=== PATIENT | male | born 1940 | race Caucasian/White ===

== ENCOUNTER 2018-04-26 10:02 | Outpatient (CLI) | payer MEDICARE, OTHER | END 2018-04-26 10:03 | disposition home or self-care (01) | LOC: SC 10:02 | PROVIDERS: ATTEND Internal Medicine Pulmonary Disease | DX: G47.33 Obstructive sleep apnea (adult) (pediatric) (principal) | CPT/HCPCS: 99203; G0463; 99212 ==

== ENCOUNTER 2018-05-19 05:29 | Outpatient (CLI) | payer MEDICARE | END 2018-05-19 05:30 | disposition critical access hospital (66) | LOC: EMS 05:29 | PROVIDERS: ATTEND Surgery | DX: R25.2 Cramp and spasm (principal); R53.1 Weakness | CPT/HCPCS: A0425; A0429 ==

== ENCOUNTER 2018-05-19 05:54 | Emergency (ER) | payer MEDICARE ==
[2018-05-19] MEDS ORDERED: LORazepam 2 MG/ML VIAL ONE (06:09)
[2018-05-19] MEDS ORDERED: LORazepam 2 MG/ML VIAL IVP STA (06:10)
[2018-05-19 06:17] LABS: BASOPHILS # (AUTO) 0.1 10^3/uL (0.0-0.1); BASOPHILS % (AUTO) 1.3 %; EOSINOPHILS # (AUTO) 0.2 10^3/uL (0.0-0.7); HGB - HEMOGLOBIN 14.1 g/dL (14.0-18.0); LYMPHOCYTES # (AUTO) 2.2 10^3/uL (1.5-3.5); LYMPHOCYTES % (AUTO) 24.6 %; MEAN CORPUSCULAR HEMOGLOBIN 30.5 pg (27.0-31.0); MEAN CORPUSCULAR HGB CONC 33.5 g/dL (32.0-36.0); MEAN CORPUSCULAR VOLUME 90.9 fL (80.0-94.0); MEAN PLATELET VOLUME 7.8 fL (7.4-11.4); MONOCYTES # (AUTO) 1.3 10^3/uL (0.0-1.0); MONOCYTES % (AUTO) 14.4 %; NEUTROPHILS # (AUTO) 5.1 10^3/uL (1.5-6.6); NEUTROPHILS % (AUTO) 57.7 %; PLT - PLATELET COUNT 251 10^3/uL (130-450); RED BLOOD COUNT 4.64 10^6/uL (4.70-6.10); RED CELL DISTRIBUTION WIDTH 14.2 % (12.0-15.0); WHITE BLOOD COUNT 8.8 x10^3/uL (4.8-10.8)
[2018-05-19 06:32] LABS: ALBUMIN 3.7 g/dL (3.2-5.5); ALBUMIN/GLOBULIN RATIO 0.9 (1.0-2.2); BILIRUBIN,TOTAL 1.1 mg/dL (0.2-1.0); CREATININE 0.8 mg/dL (0.6-1.2); MAGNESIUM 2.2 mg/dL (1.7-2.8); PHOSPHORUS 3.4 mg/dL (2.5-4.6); TOTAL PROTEIN 7.6 g/dL (6.7-8.2)
--- NOTE | 2018-05-19 06:37 | ED Physician Documentation ---
PD HPI FOCAL NEURO - Stated complaint Stated Complaint: LEFT HAND SPASM - Chief complaint Chief Complaint: Neuro - History obtained from History obtained from: Patient, EMS - History of Present Illness Timing - onset: Today Timing - details: Abrupt onset, Now resolved Severity of deficit: Mild Weakness: Hand, Left Similar symptoms before: Has not had sx before Recently seen: Not recently seen - Additional information Additional information: Patient is an 78 year old male presenting to the emergency department for spasm followed by weakness of his left hand. According to patient he was woken up today by repetitive spasming of his left hand. patient states that it lasted about 5 minutes followed by weakness in that hand. patient reports a stroke in 2002 with minimal deficit. patient reports that about a month ago he had another stroke like experience with left sided weakness and some facial droop but he had family coming in town for his 78th birthday and didn't want to be in the hospital so he did not come in. patient reports that he has been doing exercised in the right hand to try to regain strength. Review of Systems Ten Systems: 10 systems reviewed and negative Constitutional: denies: Fever, Chills Eyes: denies: Decreased vision, Photophobia GI: denies: Nausea, Vomiting Musculoskeletal: denies: Extremity pain Neurologic: reports: Focal weakness, Numbness. denies: Headache, Head injury, LOC Immunocompromised: denies: Immunocompromised PD PAST MEDICAL HISTORY - Past Medical History Past Medical History: No Cardiovascular: Hypertension, High cholesterol Respiratory: None Neuro: CVA Endocrine/Autoimmune: None GI: None : None HEENT: None Psych: None Musculoskeletal: None Derm: None - Past Surgical History Past Surgical History: No General: Colonoscopy, EGD HEENT: Tonsil/Adenoidectomy - Present Medications Home Medications: Ambulatory Orders Medication Instructions Recorded Confirmed Atenolol 50 mg PO 05/19/18 Clopidogrel [Plavix] 75 mg PO ONCE 05/19/18 05/19/18 Finasteride 5 mg PO 05/19/18 Lisinopril 40 mg PO 05/19/18 Pantoprazole [Protonix] 40 mg PO 05/19/18 Pravastatin Sodium 40 mg PO 05/19/18 amLODIPine [Norvasc] 10 mg PO DAILY 05/19/18 05/19/18 - Allergies Allergies/Adverse Reactions: Allergies Allergy/AdvReac Type Severity Reaction Status Date / Time Penicillins AdvReac Rash Verified 05/19/18 06:02 - Social History Does the pt smoke?: No Smoking Status: Never smoker Does the pt drink ETOH?: Yes Does the pt have substance abuse?: No - Immunizations Immunizations are current?: Yes - POLST Patient has POLST: No PD ED PE NORMAL - Vitals Vital signs reviewed: Yes - General General: Alert and oriented X 3 - HEENT HEENT: Atraumatic - Cardiac Cardiac: RRR - Respiratory Respiratory: No respiratory distress - Abdomen Abdomen: Soft - Derm Derm: Normal color PD ED PE EXPANDED - Neuro Neuro: Alert and Oriented X 3. No: Confused, Disoriented, Normal motor (poor fine motor function of left fingers) NIHSS - Time Time: 06:00 - Level of Consciousness Level of consciousness: (0) Alert, Keenly responsive LOC Questions: (0) Answers both Q's correct LOC Commands: (0) Performs both correctly - Gaze Best Gaze: (0) Normal - Visual Visual: (0) No loss - Facial Palsy Facial Palsy: (1) Minor paralysis - Motor Arms (both separate) Motor Arm (right): (0) No drift Motor Arm (left): (0) No drift - Motor Legs (both separate) Motor Leg (right): (0) No drift Motor Leg (left): (0) No drift - Limb Ataxia Limb Ataxia: (0) Absent - Sensory Sensory: (0) Normal - Best Language Best Language: (0) No aphasia - Dysarthria Dysarthria: (0) Normal - Extinction and Inattention (formally neg Extinction and inattention: (0) No abnormality - Total Score/Results Total Score/Result: 1 Results - Vitals Vitals: Vital Signs - 24 hr 05/19/18 05/19/18 05:56 06:34 Temperature 36.3 C L Heart Rate 62 59 L Respiratory 16 19 Rate Blood Pressure 151/91 H 137/90 H O2 Saturation 99 97 Oxygen O2 Source Room air - Labs Labs: Laboratory Tests 05/19/18 05/19/18 05/19/18 06:02 06:02 06:02 WBC 8.8 RBC 4.64 L Hgb 14.1 Hct 42.2 MCV 90.9 MCH 30.5 MCHC 33.5 RDW 14.2 Plt Count 251 MPV 7.8 Neut # (Auto) 5.1 Lymph # (Auto) 2.2 [place] # (Auto) 1.3 H Eos # (Auto) 0.2 Baso # (Auto) 0.1 Absolute Nucleated RBC 0.00 Nucleated RBC % 0.0 PT 12.1 INR 1.1 APTT 28.2 Sodium 138 Potassium 3.6 Chloride 102 Carbon Dioxide 28 Anion Gap 8.0 BUN 13 Creatinine 0.8 Estimated GFR (MDRD) 93 Glucose 117 H Calcium 9.0 Phosphorus 3.4 Magnesium 2.2 Total Bilirubin 1.1 H AST 25 ALT 20 Alkaline Phosphatase 55 Total Protein 7.6 Albumin 3.7 Globulin 3.9 Albumin/Globulin Ratio 0.9 L Lipase 39 PD MEDICAL DECISION MAKING - ED course Complexity details: reviewed old records, reviewed results, re-evaluated patient , considered differential, d/w patient ED course: patient was seen and examined at bedside. labs were drawn. while waiting for lab results patient had another episode. it was more of a focal seizure of the left arm/hand as opposed to spasm. it lasted about 3 minutes. patient was treated with ativan 1mg and imaging was ordered. When patient returned results were reviewed and discussed with radiologist. Patient was found to have two masses with petechial hemorrhage and vasogenic edema. Findings were discussed with the patient and family. Case was discussed with Dr. Kearns, Neurosurgery who recommended loading the patient on keppra, 4mg decadron IV and transfer to the neuro icu. - Sepsis Event Vital Signs: Vital Signs - 24 hr 05/19/18 05/19/18 05:56 06:34 Temperature 36.3 C L Heart Rate 62 59 L Respiratory 16 19 Rate Blood Pressure 151/91 H 137/90 H O2 Saturation 99 97 Oxygen O2 Source Room air Departure - Departure Clinical Impression: Mass of cerebral hemisphere, Vasogenic cerebral edema Condition: Critical
[2018-05-19 06:42] LABS: INR 1.1 (0.8-1.2); PT - PROTHROMBIN TIME 12.1 secs (9.9-12.6)
--- NOTE | 2018-05-19 06:54 | CT Report ---
Reason: focal seizure Procedure Date: 05/19/2018 Accession Number: [id number] / [id number] Procedure: CT - Head W/O CPT Code: FULL RESULT: EXAM: CT HEAD EXAM DATE: 05/19/2018 06:33 AM. CLINICAL HISTORY: Seizure. COMPARISON: Brain CT from 03/25/2007. TECHNIQUE: Multiaxial CT images were obtained from the foramen magnum to the vertex. Reformats: Coronal. IV contrast: None. In accordance with CT protocol optimization, one or more of the following dose reduction techniques were utilized for this exam: automated exposure control, adjustment of mA and/or KV based on patient size, or use of iterative reconstructive technique. FINDINGS: Parenchyma: Moderate cerebral white matter hypodensity is now noted, progressed since the prior CT and likely represents progressed chronic microvascular ischemic changes. There is an area of hypodensity in the subcortical white matter of the right middle frontal gyrus measuring 3.7 x 1.3 cm (image 25, series 3), suspicious for vasogenic edema. There is suggestion of 2 hyperdense intra-axial masses in the left frontal lobe measuring 9 mm in the left middle frontal gyrus (image 25, series 3) and in the left inferior frontal gyrus measuring 9 mm (image 20, series 3). Extraaxial Spaces: Normal for age. No subdural or epidural collections identified. Ventricles: The ventricles and cortical sulci are mildly enlarged, consistent with age-related tissue loss. Sinuses and orbits: There is mild mucosal thickening in the left maxillary sinus. The orbits and mastoid sinuses are unremarkable. Bones: No evidence of fracture or calvarial defect. Other: Mild intracranial atherosclerosis is noted. IMPRESSION: 1. Suggestion of vasogenic edema in the right middle frontal gyrus. 2. Suggestion of intra-axial masses in the left frontal lobe with intratumoral petechial hemorrhage. Further evaluation with brain MRI with and without contrast is recommended. RADIA The above findings were discussed with Dr. Rogers by Dr. Erica Bryan at 06:52 hrs on 05/19/18.
--- NOTE | 2018-05-19 07:16 | ED Physician Documentation ---
History of Present Illness - Stated complaint Stated Complaint: LEFT HAND SPASM - Chief complaint Chief Complaint: Neuro PD PAST MEDICAL HISTORY - Past Medical History Past Medical History: No Cardiovascular: Hypertension, High cholesterol Respiratory: None Neuro: CVA Endocrine/Autoimmune: None GI: None : None HEENT: None Psych: None Musculoskeletal: None Derm: None - Past Surgical History Past Surgical History: No General: Colonoscopy, EGD HEENT: Tonsil/Adenoidectomy - Present Medications Home Medications: Ambulatory Orders Medication Instructions Recorded Confirmed Atenolol 50 mg PO 05/19/18 Clopidogrel [Plavix] 75 mg PO ONCE 05/19/18 05/19/18 Finasteride 5 mg PO 05/19/18 Lisinopril 40 mg PO 05/19/18 Pantoprazole [Protonix] 40 mg PO 05/19/18 Pravastatin Sodium 40 mg PO 05/19/18 amLODIPine [Norvasc] 10 mg PO DAILY 05/19/18 05/19/18 - Allergies Allergies/Adverse Reactions: Allergies Allergy/AdvReac Type Severity Reaction Status Date / Time Penicillins AdvReac Rash Verified 05/19/18 06:02 - Social History Does the pt smoke?: No Smoking Status: Never smoker Does the pt drink ETOH?: Yes Does the pt have substance abuse?: No - Immunizations Immunizations are current?: Yes - POLST Patient has POLST: No Results - Vitals Vitals: Vital Signs - 24 hr 05/19/18 05/19/18 05:56 06:34 Temperature 36.3 C L Heart Rate 62 59 L Respiratory 16 19 Rate Blood Pressure 151/91 H 137/90 H O2 Saturation 99 97 Oxygen O2 Source Room air - Labs Labs: Laboratory Tests 05/19/18 05/19/18 05/19/18 06:02 06:02 06:02 WBC 8.8 RBC 4.64 L Hgb 14.1 Hct 42.2 MCV 90.9 MCH 30.5 MCHC 33.5 RDW 14.2 Plt Count 251 MPV 7.8 Neut # (Auto) 5.1 Lymph # (Auto) 2.2 [place] # (Auto) 1.3 H Eos # (Auto) 0.2 Baso # (Auto) 0.1 Absolute Nucleated RBC 0.00 Nucleated RBC % 0.0 PT 12.1 INR 1.1 APTT 28.2 Sodium 138 Potassium 3.6 Chloride 102 Carbon Dioxide 28 Anion Gap 8.0 BUN 13 Creatinine 0.8 Estimated GFR (MDRD) 93 Glucose 117 H Calcium 9.0 Phosphorus 3.4 Magnesium 2.2 Total Bilirubin 1.1 H AST 25 ALT 20 Alkaline Phosphatase 55 Total Protein 7.6 Albumin 3.7 Globulin 3.9 Albumin/Globulin Ratio 0.9 L Lipase 39 PD MEDICAL DECISION MAKING - ED course ED course: assumed care 7 AM 05/19/18 78 male hx CVA and skin cancer 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 L hand CT shows likely metastatic dz with petecchial hemorrhage and vasogenic edema he is on plavix pt has received ativan and decadron 4mg q6h and keppra per neurosurg rec pt and family have been updated plan is to tx to a tertiary care facility Prov is full night EMP spoke to [facility] neurosurg who rec admit to [facility] neuro ICU waiting for [facility] vice president safety to call back pt has no complaints at this time - denies pain, awake alert ambulatory - Sepsis Event Vital Signs: Vital Signs - 24 hr 05/19/18 05/19/18 05:56 06:34 Temperature 36.3 C L Heart Rate 62 59 L Respiratory 16 19 Rate Blood Pressure 151/91 H 137/90 H O2 Saturation 99 97 Oxygen O2 Source Room air Departure - Departure Clinical Impression: Mass of cerebral hemisphere, Vasogenic cerebral edema Condition: Critical
[2018-05-19] MEDS ORDERED: levETIRAcetam INJ 1,000 MG in SODIUM CHLORIDE 0.9% 100ML 100 ML IV STA (07:20)
[2018-05-19] MEDS ORDERED: DEXAMETHASONE 10 MG/ML VIAL IVP STA (07:21)
[2018-05-19 11:52] VITALS: BP 117/88
== END 2018-05-19 12:05 | disposition short-term general hospital (02) ==
LOC: EDUNIT# → ED 05:54
DX: G93.89 Other specified disorders of brain (principal); G93.6 Cerebral edema; I10 Essential (primary) hypertension; Z86.73 Personal history of transient ischemic attack (TIA), and cerebral infarction without residual deficits; E78.00 Pure hypercholesterolemia, unspecified
CPT/HCPCS: 36415; 70450; 80053; 83690; 83735; 84100; 85025; 85610; 85730; 96365; 96375; 99285; J2060

== ENCOUNTER 2018-07-24 21:40 | Outpatient (CLI) | payer MEDICARE | END 2018-07-24 21:41 | disposition critical access hospital (66) | LOC: EMS 21:40 | PROVIDERS: ATTEND Surgery | DX: R53.1 Weakness (principal) | CPT/HCPCS: A0425; A0429 ==

== ENCOUNTER 2018-07-24 21:59 | Emergency (ER) | payer MEDICARE ==
--- NOTE | 2018-07-24 22:20 | ED Physician Documentation ---
History of Present Illness - Stated complaint Stated Complaint: WEAKNESS, CA - Chief complaint Chief Complaint: Neuro - History obtained from History obtained from: Patient, Family, Friend - History of Present Illness Timing: How many weeks ago (2-3) Improved by: nothing Worsened by: no exacerbating factors - Additonal information Additional information: Patient presents with spouse and a close family friend who has been helping provide care for this patient. in April 2018, patient presented to this emergen cy department and the ensuing work up including a CT of the head revealing a mess with surrounding vasogenic edema. he was transferred to the care of a neurosurgeon. He subsequently, in May 2018, was found to have a long mass, biopsy of which was showing to be metastatic malignant melanoma. The patient has been receiving IV Chemotherapy, most recently this past Wednesday. The chief complaint of tonight is weakness. He has had gradually increasing generalize weakness over the past few weeks, and head to begin using a walker for five days ago for the first time. For the friend, the breaking point tonight was the patient became too weak to get out of bed, and the friend and a spouse had so much difficulty helping patient walk to bathroom that they believed he was going to fall to ground. They had to return him to the bed before they could get to the bathroom, and patient had lots of continents, which is new for him as well. The friend says that there was a discussion earlier today between patient, spouse, and her (friend) about hospice care for this patient. At this time, they are requesting hospice care and state that they can no longer take care of him at home because of his severe generalized weakness. Review of Systems Constitutional: reports: Reviewed and negative Cardiac: reports: Reviewed and negative Respiratory: reports: Reviewed and negative GI: reports: Reviewed and negative : reports: Incontinent. denies: Frequency Skin: reports: Reviewed and negative Musculoskeletal: reports: Back pain Neurologic: reports: Generalized weakness. denies: Focal weakness, Numbness, Confused, Altered mental status, Headache PD PAST MEDICAL HISTORY - Past Medical History Cardiovascular: Hypertension, High cholesterol Respiratory: None Neuro: CVA Endocrine/Autoimmune: None GI: None : None HEENT: None Psych: None Musculoskeletal: None Derm: None - Past Surgical History Past Surgical History: No General: Colonoscopy, EGD HEENT: Tonsil/Adenoidectomy - Present Medications Home Medications: Ambulatory Orders Medication Instructions Recorded Confirmed Atenolol 50 mg PO 05/19/18 Pantoprazole [Protonix] 40 mg PO 05/19/18 amLODIPine [Norvasc] 10 mg PO DAILY 05/19/18 05/19/18 Acetaminophen [Tylenol] 325 mg SD Q6H #30 supp 07/25/18 Acetaminophen [Tylenol] 650 mg PO Q6H PRN #30 tab 07/25/18 LORazepam [Lorazepam Intensol] 2 mg PO Q2H PRN #30 ml 07/25/18 Morphine Sulfate [Morphine Sulf 4 mg PO Q1H PRN #30 ml 07/25/18 Oral (Roxanol)] Scopolamine 1 each TD Q3D PRN #5 patch.td.3 07/25/18 - Allergies Allergies/Adverse Reactions: Allergies Allergy/AdvReac Type Severity Reaction Status Date / Time walnut Allergy Respiratory Verified 07/24/18 22:09 Penicillins AdvReac Rash Verified 07/24/18 22:08 - Social History Does the pt smoke?: No Smoking Status: Never smoker Does the pt drink ETOH?: Yes Does the pt have substance abuse?: No - Immunizations Immunizations are current?: Yes - POLST Patient has POLST: No PD ED PE NORMAL - Vitals Vital signs reviewed: Yes - General General: Alert and oriented X 3, No acute distress, Well developed/nourished, Other (answers quietly, slowly, but accurately) - HEENT HEENT: PERRL, EOMI - Cardiac Cardiac: RRR, No murmur - Respiratory Respiratory: No respiratory distress, Clear bilaterally - Abdomen Abdomen: Soft - Back Back: No spinal TTP - Derm Derm: Normal color, Warm and dry - Extremities Extremities: Normal ROM s pain - Neuro Neuro: Alert and oriented X 3, 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 3/5 bilateral leg raise, 3/5 bilateral knee extension) Eye Opening: Spontaneous Motor: Obeys Commands Verbal: Oriented GCS Score: 15 Results - Vitals Vitals: Vital Signs - 24 hr 07/24/18 07/25/18 07/25/18 22:00 00:16 01:31 Temperature 37.4 C Heart Rate 54 L 50 L 49 L Respiratory 18 18 14 Rate Blood Pressure 121/70 113/75 129/75 O2 Saturation 92 93 91 L 11/05/18 11/05/18 11/05/18 04:06 06:53 09:50 Temperature Heart Rate 53 L 59 L 54 L Respiratory 18 16 12 Rate Blood Pressure 137/73 H 133/70 H 129/67 O2 Saturation 93 90 L 90 L 07/25/18 07/25/18 13:23 16:16 Temperature Heart Rate 77 90 Respiratory 20 16 Rate Blood Pressure 117/70 127/73 O2 Saturation 91 L 94 Oxygen O2 Source Room air - Labs Labs: Laboratory Tests 07/24/18 07/24/18 07/24/18 23:11 23:20 23:20 WBC 8.7 RBC 5.16 Hgb 16.0 Hct 47.9 MCV 92.8 MCH 31.0 MCHC 33.4 RDW 15.5 H Plt Count 182 MPV 7.1 L Neut # (Auto) 7.5 H Lymph # (Auto) 0.7 L [place] # (Auto) 0.5 Eos # (Auto) 0.0 Baso # (Auto) 0.1 Absolute Nucleated RBC 0.00 Nucleated RBC % 0.0 Sodium 131 L Potassium 4.0 Chloride 98 L Carbon Dioxide 24 Anion Gap 9.0 BUN 14 Creatinine 0.7 Estimated GFR (MDRD) 109 Glucose 115 H Calcium 8.3 L Total Bilirubin 0.8 AST 40 ALT 44 Alkaline Phosphatase 62 Total Protein 6.1 L Albumin 3.0 L Globulin 3.1 Albumin/Globulin Ratio 1.0 Lipase 29 Urine Color YELLOW Urine Clarity CLEAR Urine pH 7.0 Ur Specific [place] 1.010 Urine Protein NEGATIVE Urine Glucose (UA) NEGATIVE Urine Ketones NEGATIVE Urine Occult Blood NEGATIVE Urine Nitrite NEGATIVE Urine Bilirubin NEGATIVE Urine Urobilinogen 0.2 (NORMAL) Ur Leukocyte Esterase NEGATIVE Ur Microscopic Review NOT INDICATED Urine Culture Comments NOT INDICATED PD MEDICAL DECISION MAKING - ED course Complexity details: reviewed old records, reviewed results, re-evaluated patient, considered differential, d/w patient, d/w family ED course: signed out to Dr. Heard at change if shift 7AM pending evaluation. Departure - Departure Disposition: 01 Home, Self Care Clinical Impression: Cancer, Comfort measures only status Condition: Good Prescriptions: Acetaminophen [Tylenol] 650 mg PO Q6H PRN #30 tab PRN Reason: Pain Acetaminophen [Tylenol] 325 mg SD Q6H #30 supp LORazepam [Lorazepam Intensol] 2 mg PO Q2H PRN #30 ml PRN Reason: Agitation Morphine Sulfate [Morphine Sulf Oral (Roxanol)] 4 mg PO Q1H PRN #30 ml PRN Reason: Pain/Dyspnea Scopolamine 1 each TD Q3D PRN #5 patch.td.3 PRN Reason: Excessive Secretions Comments: This gentleman has metastatic lung cancer. To brain. Very quick deterioration over the last week. Unable to get out of bed. Family wants him entered into hospice and comfort care only. To be placed in [facility] today. Hospice will open him up to services starting tomorrow. Discharge Date/Time: 07/25/18 16:51
[2018-07-24 23:14] LABS: BILIRUBIN,URINE NEGATIVE (NEGATIVE); GLUCOSE, URINE (UA) NEGATIVE (NEGATIVE); KETONES,URINE (UA) NEGATIVE (NEGATIVE); LEUKOCYTE ESTERASE, URINE NEGATIVE (NEGATIVE); NITRITE,URINE NEGATIVE (NEGATIVE); OCCULT BLOOD,URINE NEGATIVE (NEGATIVE); PROTEIN,URINE NEGATIVE (NEGATIVE); UROBILINOGEN,URINE 0.2 (NORMAL) E.U./dL (NORMAL)
[2018-07-24 23:22] LABS: CLARITY,URINE CLEAR (CLEAR)
[2018-07-24 23:28] LABS: BASOPHILS # (AUTO) 0.1 10^3/uL (0.0-0.1); BASOPHILS % (AUTO) 0.7 %; EOSINOPHILS % (AUTO) 0.2 %; LYMPHOCYTES # (AUTO) 0.7 10^3/uL (1.5-3.5); LYMPHOCYTES % (AUTO) 7.8 %; MEAN CORPUSCULAR HGB CONC 33.4 g/dL (32.0-36.0); MEAN CORPUSCULAR VOLUME 92.8 fL (80.0-94.0); MEAN PLATELET VOLUME 7.1 fL (7.4-11.4); MONOCYTES # (AUTO) 0.5 10^3/uL (0.0-1.0); MONOCYTES % (AUTO) 5.2 %; NEUTROPHILS # (AUTO) 7.5 10^3/uL (1.5-6.6); NEUTROPHILS % (AUTO) 86.1 %; PLT - PLATELET COUNT 182 10^3/uL (130-450); RED BLOOD COUNT 5.16 10^6/uL (4.70-6.10); RED CELL DISTRIBUTION WIDTH 15.5 % (12.0-15.0); WHITE BLOOD COUNT 8.7 x10^3/uL (4.8-10.8)
[2018-07-24 23:40] LABS: BILIRUBIN,TOTAL 0.8 mg/dL (0.2-1.0); CALCIUM 8.3 mg/dL (8.5-10.3); CREATININE 0.7 mg/dL (0.6-1.2); TOTAL PROTEIN 6.1 g/dL (6.7-8.2)
--- NOTE | 2018-07-25 12:56 | ED Physician Documentation ---
ED Addendum - Addendum Addendum: 07/25/18 The patient's care was turned over to mn at 7 AM. The patient is currently pending to work evaluation for placement. The patient has been stable throughout the morning. Social work has been able to place the patient into an appropriate facility. The patient and family understand and agree to this plan.
--- NOTE | 2018-07-25 13:31 | Discharge Plan ---
"Discharge Plan for SNF / [facility] - Discharge Plan And Transition Orders Disposition: 03 SNF DC/Xfer Condition: Good Allergies and Adverse Reactions: Allergies Allergy/AdvReac Type Severity Reaction Status Date / Time walnut Allergy Respiratory Verified 07/24/18 22:09 Penicillins AdvReac Rash Verified 07/24/18 22:08 - SNF / SENIOR CARE Transition Orders Admit to (Facility): [facility] Under the care of (Name): Dr Julio Thompson Discharge Diagnosis: 1. Metastatic lung cancer, metastatic to brain 2. Severe obstructive sleep apnea 3. Hypertension 4. Gastroesophageal reflux disease 5. Type 2 diabetes mellitus, controlled, not on long-term insulin Medicare Certification Statement: I certify that [facility] care is medically necessary on a continuing basis for any of the conditions for which she/he is receiving care during hospitalization. Notify PCP of admission and forward orders to primary provider for signature. Other Notification Orders: Call PCP immediately if patient develops dyspnea, chest pain/tightness or edema. House Bowel Program: Yes Additional Bowel Program Orders: If no BM after 2 days, nurse may give M.O.M. 30ml PO PRN and/or ducolax Supp 1 RI and/or JOSE 250mg P.O., and/or senna 1-2 tabs PO. On day 3 nurse may give repeat above order until residents constipation is resolved. Annual Influenza Vaccine (between May 21 and December 18): No Two-step PPD per [facility] [id number] or approved exception documents: No Medication Orders: PLEASE REFER TO THE DISCHARGE MEDICATION LIST. Insulin Orders?: No - Medications New Prescriptions: Acetaminophen [Tylenol] 650 mg PO Q6H PRN #30 tab PRN Reason: Pain Acetaminophen [Tylenol] 325 mg RI Q6H #30 supp LORazepam [Lorazepam Intensol] 2 mg PO Q2H PRN #30 ml PRN Reason: Agitation Morphine Sulfate [Morphine Sulf Oral (Roxanol)] 4 mg PO Q1H PRN #30 ml PRN Reason: Pain/Dyspnea Scopolamine 1 each TD Q3D PRN #5 patch.td.3 PRN Reason: Excessive Secretions - Diet Type: Geriatric Texture: [facility] soft Liquids: Thin May have monthly special meal: No - Therapies | Activity Rehabilitation Potential: Maintain present ADL Functional (patient is terminal, comfort measures only) Additional Instructions: This gentleman has metastatic lung cancer. To brain. Very quick deterioration over the last week. Unable to get out of bed. Family wants him entered into hospice and comfort care only. To be placed in [facility] today. Hospice will open him up to services starting tomorrow."
[2018-07-25 16:18] VITALS: BP 127/73
== END 2018-07-25 16:51 | disposition home or self-care (01) ==
LOC: EDUNIT# → ED 21:59
DX: C34.90 Malignant neoplasm of unspecified part of unspecified bronchus or lung (principal); C79.31 Secondary malignant neoplasm of brain; R53.1 Weakness; R32 Unspecified urinary incontinence; I10 Essential (primary) hypertension
CPT/HCPCS: 36415; 80053; 81001; 81003; 83690; 85025; 87086; 99284

== ENCOUNTER 2018-07-25 17:05 | Outpatient (CLI) | payer MEDICARE | END 2018-07-25 17:06 | LOC: EMS 17:05 | PROVIDERS: ATTEND Surgery | DX: R53.1 Weakness (principal); Z74.01 Bed confinement status | CPT/HCPCS: A0425; A0428 ==